=== PATIENT | female | born 1985 | race American Indian/Alaskan Native ===

== ENCOUNTER 2017-09-03 11:30 | Inpatient (IN) | payer MEDICAID ==
--- NOTE | 2017-09-04 01:40 | History and Physical Report ---
History of Present Illness Date of examination: 09/04/17 Chief complaint: scheduled section History of present illness: Pt is a 31 year old -[place] female OLIVIA 09/10/17 at 39w1d presents for scheduled section secondary to previous x 4. She reports irregular contractions but denies vaginal bleeding or leakage of fluid. She has had limited care at [facility] since entry at 34 wks complicated by glucose intolerance with normal 3 hr GTT, and previous section. She is GBS negative. Past History Past Medical History: no pertinent history Past Surgical History: section (x 4 ) Family/Genetic History: hypertension Social history: - Obstetrical History Expected Date of Delivery: 09/10/17 Actual Gestation: 39 Week(s) 1 Day(s) : 6 Para: 4 Hx # Term Pregnancies: 4 Number of Pregnancies: 0 Spontaneous Abortions: 0 Induced : 1 Number of Living Children: 4 Review of Systems All systems: negative - Physical Exam Breasts: Positive: deferred Abdomen: Positive: soft (gravid ) Uterus: Positive: enlarged (gravid) - Obstetrical FHR: auscultation normal Uterine Contraction Monitor Mode: External Uterine Contraction Pattern: Irregular Uterine Tone Measurement Phase: Resting Uterine Contraction Intensity: Mild Results All other labs normal. Assessment and Plan A: IUP at 39w1d Previous x 4 GBS negative P: Proceed with repeat section and other indicated procedures.
[2017-09-04] MEDS ORDERED: ANCEF/STERILE WATER 2 GM/20 ML 2 GM/20 ML SYRINGE IV NR (02:00)
[2017-09-04] MEDS ORDERED: PITOCin/NS 20 UNIT/1000ML DRIP 20 UNITS/1,000 ML BAG IV SCH ×2 (06:00→11:00)
[2017-09-04] MEDS ORDERED: LACTATED RINGERS 1,000 ML IV SCH (06:00)
[2017-09-04] MEDS ORDERED: PEPCID IV ONE (06:15)
[2017-09-04] MEDS ORDERED: BICITRA PO ONE (06:15)
[2017-09-04 06:19] LABS: Hematocrit 33.3 % (30.3-42.9); Hemoglobin 10.6 gm/dl (10.1-14.3); Mean Corpuscular HGB Conc 32 % (30-34); Mean Corpuscular Hemoglobin 26 pg (28-32); Mean Corpuscular Volume 82 fl (79-97); Platelet Count 207 K/mm3 (140-440); Red Blood Count 4.08 M/mm3 (3.65-5.03); Red Cell Distribution Width 16.7 % (13.2-15.2); White Blood Count 10.8 K/mm3 (4.5-11.0)
[2017-09-04] MEDS ORDERED: REGLAN IV ONE (06:35)
--- NOTE | 2017-09-04 07:19 | Anesthesia Consultation ---
Anesthesia Consult and Med Hx Date of service: 09/04/17 - Airway Anesthetic Teeth Evaluation: Good ROM Head & Neck: Adequate Mental/Hyoid Distance: Adequate Mallampati Class: Class II Intubation Access Assessment: Probably Good - Pre-Operative Health Status ASA Pre-Surgery Classification: ASA2 Proposed Anesthetic Plan: Epidural, Spinal - Pulmonary Hx Asthma: No COPD: No Hx Pneumonia: No - Cardiovascular System Hx Hypertension: No - Central Nervous System Hx Seizures: No Hx Psychiatric Problems: No - Endocrine Hx Renal Disease: No Hx End Stage Renal Disease: No Hx Hypothyroidism: No Hx Hyperthyroidism: No - Hematic Hx Anemia: No Hx Sickle Cell Disease: No - Other Systems Hx Alcohol Use: No - Additional Comments Anesthesia Medical History Comments: x5
--- NOTE | 2017-09-04 07:20 | Anesthesia Day of Surgery ---
Anesthesia Day of Surgery - Day of Surgery Patient Examined: Yes Patient H&P Reviewed: Yes Patient is NPO: Yes
[2017-09-04] MEDS ORDERED: LACTATED RINGERS IV ONE (07:28)
[2017-09-04] MEDS ORDERED: MORPHINE ONE (07:32)
[2017-09-04] MEDS ORDERED: NACL 0.9% 1000 ML 1,000 ML ONE (07:56)
[2017-09-04] MEDS ORDERED: NEO SYNEPHRINE/NS Syringe(OR USE) IV ONE (09:00)
[2017-09-04] MEDS ORDERED: XYLOCAINE MPF 2% ONE ×2 (09:01)
--- NOTE | 2017-09-04 09:05 | Procedure Note ---
OB Delivery Note - Delivery Date of Delivery: 09/04/17 Surgeon: KOURTNEY HICKS Estimated blood loss: other (900 mL) - Section Preop diagnosis: repeat Postop diagnosis: same section procedure: section, repeat low transverse Disposition: PACU Complications: uterine atony Narrative: Please see operative note. - A at 1 minute: 8 at 5 minutes: 8 Infant Gender: Female (3653g (8lb 1 oz) @ 0809 am)
--- NOTE | 2017-09-04 09:13 | Operative Report ---
Operative Report Operative Report: Date of procedure: September 04, 2017 Preoperative diagnosis: 1) IUP at 39w1d 2) Previous x 4 3) Obesity Postoperative diagnosis: Same Procedure: Repeat low transverse section Surgeon: Arminda Enriquez M.D. Anesthesia: Spinal-epidural Findings: 1) Viable female , Apgars 8 and 8, weight 3653 g, (8 lb 1 oz) in vertex presentation 2) Normal-appearing uterus ovaries and tubes Estimated blood loss: 900 mL IV fluids: 1500 mL Urine output: 50 mL, clear at the end of the procedure Drains: Conrad to gravity Specimens: None Complications: None. Counts correct x 3 Disposition: Stable to PACU Indication for procedure: The patient is a 31-year-old -[place] female 014 at 39 weeks 1 day with a history of 4 previous sections presents for repeat section. Operation in detail: After the risks, benefits, alternatives and complications were explained to the patient she gave informed consent for the procedure. She was subsequently taken to the operating room where spinal-epidural anesthesia was noted to be adequate. She was subsequently placed in the dorsal supine position with leftward tilt and prepped and draped in a normal sterile fashion. heart tones were noted to be in the 130s prior to incision. A timeout was performed. A Pfannenstiel skin incision was made with the knife and carried down to the layer of the fascia with the Bovie. The fascia was incised in the midline and the fascial incision was extended bilaterally with the Bovie. At this time it was noted that the fascia, rectus muscles and peritoneum were noted to be one adherent layer. The incision was extended with good visualization of the bladder. An Derian self-retaining retractor was placed for visualization. The bladder blade was placed. The vesicouterine peritoneum noted to be adherent to the lower uterine segment and a bladder flap was not created. A transverse incision was made in the lower uterine segment with a knife and extended bilaterally with the bandage scissors. Anatomy was performed with egress of clear amniotic fluid. The head was delivered without difficulty followed by shoulders and body. was bulb suctioned at delivery. The cord was clamped and cut and the was handed to NICU staff in attendance. Cord blood was collected. The placenta was then delivered manually. The uterus was then exteriorized and cleared of all clots and debris. This is noted to be atonic at this time despite Pitocin infusion and bimanual massage. At this time additional 20 units of Pitocin was added to the IV fluids. Uterine tone improved. The hysterotomy was then reapproximated with 0 Vicryl in a running locked fashion. A second layer of the same suture was used in imbricating fashion. Additional [id number] of 0 Vicryl was used at the right-side of the incision to obtain hemostasis. The hysterotomy was inspected and hemostasis was noted. The Derian self-retaining retractor was removed. The gutters were irrigated and cleared of all clots and debris. The hysterotomy was again inspected and noted to be hemostatic. Surgicel was placed over the hysterotomy. Interceed was placed on the anterior surface of the uterus. The peritoneum, rectus muscles and fascia were again noted to be one adherent layer and were then reapproximated with 0-Vicryl in a running fashion. The skin was reapproximated with 4-0 Vicryl in a subcuticular fashion. The incision was then covered with steri strips and a pressure dressing. The procedure was then ended. The patient tolerated the procedure well and was taken to the PACU in stable condition. All instrument, lap, and needle counts were correct 3.
[2017-09-04] MEDS ORDERED: ZOFRAN IV PRN ×2 (09:30→11:00)
[2017-09-04] MEDS ORDERED: SODIUM CHLORIDE FLUSH SYRINGE 10 ML IV PRN ×2 (09:30→11:00)
[2017-09-04] MEDS ORDERED: TORADOL IV PRN ×2 (09:30→11:00)
[2017-09-04] MEDS ORDERED: NARCAN 0.4 MG/1 ML IV PRN ×2 (09:30→11:00)
[2017-09-04] MEDS ORDERED: MORPHINE IV PRN (09:30)
[2017-09-04] MEDS ORDERED: PHENERGAN PR PRN (09:30)
[2017-09-04] MEDS ORDERED: ANCEF/NS 1 GM/50 ML 1 GM/50 ML BAG IV SCH (10:51)
[2017-09-04] MEDS ORDERED: TYLENOL PO PRN (11:00)
[2017-09-04] MEDS ORDERED: LANSINOH TP PRN (11:00)
[2017-09-04] MEDS ORDERED: MYLICON PO PRN (11:00)
[2017-09-04] MEDS ORDERED: D5LR 1,000 ML IV SCH (11:00)
[2017-09-04] MEDS ORDERED: TUCKS PAD TP PRN (11:00)
[2017-09-04] MEDS: MORPHINE IV PRN ×2 (11:06→20:04)
[2017-09-04] MEDS: BENADRYL IV PRN ×3 (12:53→20:05)
[2017-09-04] MEDS: ceFAZolin 1 GM in NACL 0.9% 20 ML IV SCH (17:11)
--- NOTE | 2017-09-04 20:21 | Post Anesthesia Evaluation ---
- Post Anesthesia Evaluation Patient Participated: Yes Airway Patent: Yes Stable Respiratory Function: Yes Nausea/Vomiting: No Temp > 96.8F: Yes Pain Manageable: Yes Adequeate Hydration: Yes Anesthesia Complications: No Block Receding Appropriately: Yes Patient on Ventilator: No
[2017-09-04] MEDS ORDERED: MILK OF MAGNESIA PO PRN (22:00)
[2017-09-04 22:13] LABS: Hematocrit 31.9 % (30.3-42.9); Hemoglobin 10.3 gm/dl (10.1-14.3)
[2017-09-04] MEDS: FEOSOL PO SCH (22:38)
[2017-09-05] MEDS: ceFAZolin 1 GM in NACL 0.9% 20 ML IV SCH (01:37)
[2017-09-05] MEDS: BENADRYL PO PRN ×3 (05:50→22:01)
[2017-09-05] MEDS ORDERED: BOOSTRIX IM ONE (06:00)
--- NOTE | 2017-09-05 08:59 | Progress Note ---
Assessment and Plan O; VSS Af PP H/H: 10.3/31.9 AL POD #1 S/P repeat C/S # 5 Anemia P: routine orders Subjective - Subjective Date of service: 09/05/17 Patient reports: appetite normal, voiding normally, pain well controlled, flatus , ambulating normally : doing well, nursing well, bottle feeding Objective - Vital Signs Latest vital signs: Vital Signs Temp Pulse Resp BP 09/05/17 00:00 98.6 F 69 18 101/68 09/04/17 17:15 98.2 F 86 20 118/73 09/04/17 11:06 20 09/04/17 10:35 97.7 F 70 20 108/71 09/04/17 09:06 97.7 F Intake and Output 09/04/17 09/05/17 09/05/17 22:59 06:59 14:59 Intake Total 240 125 Output Total 1500 800 Balance -1260 -675 Intake: IV 125 Right Hand 125 Oral 240 Output: Urine 1500 800 Indwelling Catheter 1500 Void 800 Other: Total, Intake Amount 240 Total, Output Amount 1100 800 # Voids Indwelling Catheter 1 Void 200 - Exam Breasts: Present: deferred Lungs: Present: Normal air movement Abdomen: Present: normal appearance, soft, normal bowel sounds. Absent: distention, tenderness Vulva: both: normal Uterus: Present: normal, firm, fundal height below umbilicus (3 below U, ML). Absent: bogginess, tenderness Extremities: Present: normal, edema (trace) Incision: Present: normal, dry, intact, dressed
[2017-09-05] MEDS: MOTRIN PO PRN ×2 (09:12→17:48)
[2017-09-05] MEDS: PERCOCET 5/325 PO PRN ×4 (09:13→22:01)
[2017-09-05] MEDS ORDERED: M-M-R II VACCINE SUB-Q ONE (11:00)
[2017-09-05] MEDS: FEOSOL PO SCH ×3 (17:00→22:02)
[2017-09-05] MEDS: PRENATAL VITAMIN PO SCH (17:03)
[2017-09-06] MEDS: MOTRIN PO PRN ×3 (01:53→23:30)
[2017-09-06] MEDS: PERCOCET 5/325 PO PRN ×5 (01:53→22:07)
--- NOTE | 2017-09-06 08:51 | Progress Note ---
Assessment and Plan A: POD#2 s/p repeat section at term P: Aggresive bowel regimen, encourage ambulation. Anticipate discharge tomorrow with two week follow up with Dr Enriquez. Subjective - Subjective Date of service: 09/06/17 Principal diagnosis: s/p repeat section Interval history: Pt without complaints other than fatigue. She has passed flatus once but not much. Patient reports: appetite normal, pain well controlled, flatus (little), ambulating normally, no bowel movement, no nauseated Kevin: doing well Objective - Vital Signs Latest vital signs: Vital Signs Temp Pulse Resp BP 09/05/17 23:40 98.6 F 71 18 114/71 09/05/17 17:50 20 09/05/17 17:48 20 09/05/17 17:16 97.5 F L 84 18 110/63 09/05/17 09:13 20 09/05/17 09:12 20 Intake and Output 09/05/17 09/06/17 09/06/17 22:59 06:59 14:59 Intake Total 480 300 Balance 480 300 Intake: Oral 480 Intake, Free Water 300 Other: Total, Intake Amount 480 # Voids Indwelling Catheter 1 Void 1 1 - Exam Breasts: Present: deferred Cardiovascular: Present: Regular rate Lungs: Present: Clear to auscultation Abdomen: Present: soft, distention (moderate ), abnormal bowel sounds ( hypoactive) Uterus: Present: fundal height at umbilicus Extremities: Present: edema (trace ) Incision: Present: dressed
--- NOTE | 2017-09-06 09:56 | Discharge Summary ---
Providers - Providers Date of Admission: 09/04/17 05:31 Date of discharge: 09/07/17 Attending physician: KOURTNEY ENRIQUEZ 09/04/17 10:51 Consult to [facility] [CONS] Routine Reason For Exam: Primary care physician: KOURTNEY ENRIQUEZ Hospitalization Reason for admission: section Delivery: Procedure: section, repeat low transverse Procedure details: Please see operative note. Incision: intact Other procedures: none complications: none Discharge diagnosis: IUP at term delivered baby: female Hospital course: Pt was admitted for repeat section which she tolerated well. Her postoperative course was uncomplicated and she met discharge criteria on POD#3. She will follow up in office in two weeks with Dr Enriquez. Condition at discharge: Stable Disposition: [id number] TO HOME OR SELFCARE - Discharge Diagnoses (1) Term of female Status: Acute (2) S/P section Status: Acute (3) Obesity Status: Acute Qualifiers: Obesity type: unspecified obesity type Obesity classification: unspecified obesity classification Serious obesity comorbidity presence: unspecified whether serious comorbidity present Qualified Code(s): E66.9 - Obesity, unspecified Plan - Discharge Medications Prescriptions: Ferrous Sulfate [Feosol 325 MG tab] 325 mg PO BID #60 tablet Ibuprofen [Motrin] 800 mg PO Q8HR PRN #30 tablet PRN Reason: Pain oxyCODONE /ACETAMINOPHEN [Percocet 5/325] 1 tab PO Q6HR PRN #30 tablet PRN Reason: Pain - Provider Discharge Summary Activity: routine, no sex for 6 weeks, no heavy lifting 4 weeks, no strenuous exercise Additional instructions: [] Smoking cessation referral if applicable(refer to patient education folder for contact #) [] Refer to [facility]'s [facility] Booklet Call your doctor immediately for: * Fever > 100.5 * Heavy vaginal bleeding ( >1 pad per hour) * Severe persistent headache * Shortness of breath * Reddened, hot, painful area to leg or breast * Drainage or odor from incision. * Keep incision clean and dry at all times and follow doctor's instructions regarding bathing/showering - Follow up plan Follow up: KOURTNEY ENRIQUEZ MD [Primary Care Provider] - 09/18/17 (incision check- please call office to schedule appt. )
[2017-09-06] MEDS ORDERED: CITRATE OF MAGNESIA PO ONE (10:00)
[2017-09-06] MEDS: FEOSOL PO SCH ×2 (11:20→23:33)
[2017-09-06] MEDS: PRENATAL VITAMIN PO SCH (11:20)
[2017-09-06] MEDS ORDERED: LASIX IV ONE (16:04)
[2017-09-06] MEDS ORDERED: LASIX PO ONE (17:30)
[2017-09-06] MEDS ORDERED: LASIX ONE (17:41)
[2017-09-07] MEDS: PERCOCET 5/325 PO PRN ×2 (03:55→08:37)
[2017-09-07] MEDS: MOTRIN PO PRN ×2 (05:09→12:04)
[2017-09-07] MEDS: PRENATAL VITAMIN PO SCH (12:04)
[2017-09-07] MEDS: FEOSOL PO SCH (12:04)
[2017-09-07 12:56] VITALS: BP 119/74
== END 2017-09-07 12:45 | disposition home or self-care (01) | DRG 766 ==
LOC: APU 09-04 05:31 → OB 09-04 10:47
PROVIDERS: ADMIT Obstetrics & Gynecology; ATTEND Obstetrics & Gynecology
PROC: 10D00Z1 Extraction of Products of Conception, Low, Open Approach (ICD-10-PCS; principal; 2017-09-04)
PROC: 3E0234Z Introduction of Serum, Toxoid and Vaccine into Muscle, Percutaneous Approach (ICD-10-PCS; 2017-09-05)
DX: O34.211 Maternal care for low transverse scar from previous cesarean delivery (principal); Z3A.39 39 weeks gestation of pregnancy; Z37.0 Single live birth; Z82.49 Family history of ischemic heart disease and other diseases of the circulatory system; O62.2 Other uterine inertia; O90.81 Anemia of the puerperium; D64.9 Anemia, unspecified; Z23 Encounter for immunization; O99.214 Obesity complicating childbirth; E66.9 Obesity, unspecified; Z68.33 Body mass index [BMI] 33.0-33.9, adult
CPT/HCPCS: 36415; 85014; 85018; 85025; 86850; 86900; 86901; 99211; C1765; G0463; J0690; J1200; J1885; J2270; J2370; J2405; J2590; J2765; J7030; J7120; J7121